=== PATIENT | female | born 1980 | race Two or more races ===

== ENCOUNTER 2021-08-21 07:46 | Emergency (ER) | payer OTHER ==
[~2021-08-21] VITALS: Ht 162.6 cm; Wt 65.9 kg
[2021-08-21] MEDS ORDERED: IV NORMAL SALINE 1,000ML 1,000 ML IV ONE (08:00)
[2021-08-21] MEDS ORDERED: ONDANSETRON PF 4 MG/2 ML VIAL. IVP ONE (08:00)
[2021-08-21] MEDS ORDERED: ONDANSETRON PF 4 MG/2 ML VIAL. ONE (08:24)
--- NOTE | 2021-08-21 08:24 | RAD ---
Study: XR CHEST 1V Indication: Near syncope. Comparison: None. Findings: The cardiomediastinal silhouette and negar are within normal limits. No localized airspace opacity, pl eural effusion or pneumothorax. Lucencies at the right humeral head/greater tuberosity likely postsurgical in nature. Impression: No acute radiographic abnormality of the chest. Electronically signed by: ANDRADE ABBASI MD (08/21/2021 8:22 AM) [facility]
--- NOTE | 2021-08-21 08:24 | EKG ---
[address] [address] Test Date: 2021-08-21 Test Time: 08:04:41 Pat Name: AXEL GLEASON Department: Room: Gender: F Medical Records Technician: RADHA : 1980 Requested By: ELAINA PRAKASH Order Number: [id number] Reading MD: Jameson Shankar Measurements Intervals [place] Rate: 76 P: 41 WA: 150 QRS: 36 QRSD: 82 T: 26 QT: 396 QTc: 450 Interpretive Statements SINUS RHYTHM LOW LIMB LEAD VOLTAGE QRS(T) CONTOUR ABNORMALITY CONSISTENT WITH ANTEROSEPTAL INFARCT AGE UNDETERMINED ABNORMAL ECG RI6.02 No previous ECG available for comparison Electronically Signed On 08-21-2021 17:06:02 CDT by Jameson Shankar
[2021-08-21 08:37] LABS: BASO % 1 % (0-3); EOS % 1 % (0-3); HEMATOCRIT 43.5 % (36.0-47.0); HEMOGLOBIN 14.8 g/dL (12.0-15.5); LYMPH # 0.9 x10^3/uL (1.0-4.8); LYMPH % 23 % (24-48); MEAN CORPUSCULAR HEMOGLOBIN 34 pg (25-35); MEAN CORPUSCULAR HGB CONC 34 g/dL (31-37); MEAN CORPUSCULAR VOLUME 99 fL (79-100); MONO # 0.3 x10^3/uL (0.0-1.1); MONO % 8 % (0-9); NEUT # 2.7 x10^3uL (1.8-7.7); NEUT % 68 % (31-73); PLATELET COUNT 247 x10^3/uL (140-400); RED BLOOD COUNT 4.41 x10^6/uL (3.50-5.40); RED CELL DISTRIBUTION WIDTH 12.5 % (11.5-14.5)
[2021-08-21 08:46] LABS: CALCIUM 9.3 mg/dL (8.5-10.1); CREATININE 0.9 mg/dL (0.6-1.0); GFR 69.3; POTASSIUM 3.5 mmol/L (3.5-5.1)
[2021-08-21 08:53] LABS: ALBUMIN 4.1 g/dL (3.4-5.0); ALBUMIN/GLOBULIN RATIO 1.3 (1.0-1.7); TOTAL BILIRUBIN 0.8 mg/dL (0.2-1.0); TOTAL PROTEIN 7.3 g/dL (6.4-8.2)
--- NOTE | 2021-08-21 09:01 | PHYS DOC ---
Past History Additional Past Medical Histor: seasonal allergies, Factor V Leiden Past Surgical History: Other Additional Past Surgical Histo: bunionectomy, R rotator cuff, septoplasty Alcohol Use: None General Adult EDM: Chief Complaint: NEAR SYCOPE HPI: HPI: 41-year-old female presents after near syncopal episode while driving. The patient was on her way to work when she had a generalized feeling of nausea and that she might vomit. Her vision started to narrow and eventually went completely black. The patient was able to pull to the side of the road. She laid her seat back to compose herself. She was diaphoretic. When she opened her eyes, she was getting her vision back and felt like she had to vomit. She vomited once at the window of the vehicle. At this time, she feels generally weak and tired. She is no longer nauseated. She denies headache, fever, chills. She was feeling fine prior to this episode. She has never had anything happen like this before. No significant medical history. She is on a weight loss supplement but she has been on this for some time. She takes no other medications daily. She has a history of factor V. Review of Systems: Review of Systems: Constitutional: Denies fever or chills Eyes: Denies change in visual acuity HENT: Denies nasal congestion or sore throat Respiratory: Denies cough or shortness of breath Cardiovascular: Denies chest pain or edema GI: Denies abdominal pain, nausea, vomiting, bloody stools or diarrhea : Denies dysuria Musculoskeletal: Denies back pain or joint pain Integument: Denies rash Neurologic: Denies headache, focal weakness or sensory changes Endocrine: Denies polyuria or polydipsia Lymphatic: Denies swollen glands Psychiatric: Denies depression or anxiety Current Medications: Current Meds: Current Medications Medications (Trade) Dose Ordered Sig/Mati Start Time Stop Time Status Last Admin Dose Admin Ondansetron HCl (Zofran) 4 mg 1X ONCE 08/21/21 08:00 08/21/21 08:26 DC 08/21/21 08:32 4 MG Sodium Chloride 1,000 ml @ 1,000 mls/hr 1X ONCE 08/21/21 08:00 08/21/21 08:59 08/21/21 08:32 1,000 MLS/HR Allergies: Allergies: Allergies Coded Allergies Type Severity Reaction Last Updated Verified No Known Drug Allergies 08/21/21 No Physical Exam: PE: Constitutional: Well developed, well nourished, no acute distress, non-toxic appearance. [] HENT: Normocephalic, atraumatic, bilateral external ears normal, oropharynx moist, no oral exudates, nose normal. [] Eyes: PERRLA, EOMI, conjunctiva normal, no discharge. [] Neck: Normal range of motion, no tenderness, supple, no stridor. [] Cardiovascular:Heart rate regular rhythm, no murmur [] Lungs & Thorax: Bilateral breath sounds clear to auscultation [] Abdomen: Bowel sounds normal, soft, no tenderness, no masses, no pulsatile masses. [] Skin: Warm, dry, no erythema, no rash. [] Back: No tenderness, no CVA tenderness. [] Extremities: No tenderness, no cyanosis, no clubbing, ROM intact, no edema. [] Neurologic: Alert and oriented X 3, normal motor function, normal sensory fu nction, no focal deficits noted. [] Psychologic: Affect normal, judgement normal, mood normal. [] Current Patient Data: Labs: Laboratory Tests Test 08/21/21 08:21 White Blood Count 4.0 x10^3/uL (4.0-11.0) Red Blood Count 4.41 x10^6/uL (3.50-5.40) Hemoglobin 14.8 g/dL (12.0-15.5) Hematocrit 43.5 % (36.0-47.0) Mean Corpuscular Volume 99 fL (79-100) Mean Corpuscular Hemoglobin 34 pg (25-35) Mean Corpuscular Hemoglobin Concent 34 g/dL (31-37) Red Cell Distribution Width 12.5 % (11.5-14.5) Platelet Count 247 x10^3/uL (140-400) Neutrophils (%) (Auto) 68 % (31-73) Lymphocytes (%) (Auto) 23 % (24-48) L Monocytes (%) (Auto) 8 % (0-9) Eosinophils (%) (Auto) 1 % (0-3) Basophils (%) (Auto) 1 % (0-3) Neutrophils # (Auto) 2.7 x10^3uL (1.8-7.7) Lymphocytes # (Auto) 0.9 x10^3/uL (1.0-4.8) L Monocytes # (Auto) 0.3 x10^3/uL (0.0-1.1) Eosinophils # (Auto) 0.0 x10^3/uL (0.0-0.7) Basophils # (Auto) 0.0 x10^3/uL (0.0-0.2) Sodium Level 137 mmol/L (136-145) Potassium Level 3.5 mmol/L (3.5-5.1) Chloride Level 100 mmol/L (98-107) Carbon Dioxide Level 27 mmol/L (21-32) Anion Gap 10 (6-14) Blood Urea Nitrogen 13 mg/dL (7-20) Creatinine 0.9 mg/dL (0.6-1.0) Estimated GFR (Cockcroft-Gault) 69.3 BUN/Creatinine Ratio 14 (6-20) Glucose Level 103 mg/dL (70-99) H Calcium Level 9.3 mg/dL (8.5-10.1) Total Bilirubin 0.8 mg/dL (0.2-1.0) Aspartate Amino Transferase (AST) 17 U/L (15-37) Alanine Aminotransferase (ALT) 22 U/L (14-59) Alkaline Phosphatase 63 U/L (46-116) Troponin I High Sensitivity 8 ng/L (4-50) Total Protein 7.3 g/dL (6.4-8.2) Albumin 4.1 g/dL (3.4-5.0) Albumin/Globulin Ratio 1.3 (1.0-1.7) Vital Signs: Vital Signs Date Time Temp Pulse Resp B/P (MAP) Pulse Ox O2 Delivery O2 Flow Rate FiO2 08/21/21 07:52 97.6 71 20 111/66 (81) 99 Room Air EKG: EKG: Sinus rhythm, rate 76, normal axis, no ST elevation or depression, low-voltage, possible Q waves V2 V3. [] Radiology/Procedures: Radiology/Procedures: [] Impressions: EXAM: Head CT without contrast. HISTORY: Near syncope. Vision loss. TECHNIQUE: Computed tomographic images of the head were obtained without contrast. *One or more of the following individualized dose reduction techniques were utilized for this examination: 1. Automated exposure control. 2. Adjustment of the mA and/or kV according to patient size. 3. Use of iterative reconstruction technique. COMPARISON: None. FINDINGS: There is no acute or subacute extra-axial or intraparenchymal hemorrhage. There is no mass effect or midline shift. There is no hydrocephalus. The georges-white matter differentiation pattern is intact. There is a tiny mucous retention cyst or focal mucosal thickening involving the sphenoid sinus. The mastoid air cells are clear. There is no calvarial lesion. IMPRESSION: No acute intracranial findings. Electronically signed by: Junie Cervantes MD (08/21/2021 9:35 AM) [place] [id number] DICTATED AND SIGNED BY: JUNIE CERVANTES MD DATE: 08/21/21933 CC: ELAINA PRAKASH DO; CHRISTO TOMLIN DO, [facility] ~ Study: XR CHEST 1V Indication: Near syncope. Comparison: None. Findings: The cardiomediastinal silhouette and negar are within normal limits. No localized airspace opacity, pleural effusion or pneumothorax. Lucencies at the right humeral head/greater tuberosity likely postsurgical in na ture. Impression: No acute radiographic abnormality of the chest. Electronically signed by: ANDRADE ABBASI MD (08/21/2021 8:22 AM) [facility] DICTATED AND SIGNED BY: ANDRADE ABBASI MD DATE: 08/21/21821 CC: ELAINA PRAKASH DO; PCP,NO ~ Heart Score: C/O Chest Pain: No Risk Factors: Risk Factors: DM, Current or recent (<one month) smoker, HTN, HLP, family history of CAD, obesity. Risk Scores: Score 0 - 3: 2.5% MACE over next 6 weeks - Discharge Home Score 4 - 6: 20.3% MACE over next 6 weeks - Admit for Clinical Observation Score 7 - 10: 72.7% MACE over next 6 weeks - Early Invasive Strategies Course & Med Decision Making: Course & Med Decision Making Pertinent Labs and Imaging studies reviewed. (See chart for details) The patient's EKG shows some interval did show which makes interpretation of the inferior slightly difficult. No obvious ST elevation. Chest x-ray is negative for acute findings. I did perform a head CT given the loss of vision and the patient's history of factor V. It is negative for acute findings. Her labs are unremarkable. Since this episode just occurred, I will order a troponin at 2 hours. Repeat troponin is the same. Not sure exactly what caused the patient's symptoms today. She could be coming down with a viral illness. It could have been a panic attack. I have advised that she follow-up with her physician. She is stable for discharge at this time. [] Dragon Disclaimer: Dragon Disclaimer: This electronic medical record was generated, in whole or in part, using a voice recognition dictation system. Departure Departure: Impression: Primary Impression: Near syncope Disposition: 01 HOME / SELF CARE / HOMELESS Condition: STABLE Referrals: CHRISTO TOMLIN DO, [facility] (PCP) Patient Instructions: Syncope, [id number] ELAINA PRAKASH DO August 21, 2021 09:01
[2021-08-21 09:24] LABS: BARBITURATES NEG (NEG); BENZODIAZEPINES NEG (NEG); CANNABINOIDS NEG (NEG); COCAINE NEG (NEG); METHADONE NEG (NEG); OPIATES NEG (NEG); PHENCYCLIDINE NEG (NEG)
[2021-08-21 09:28] LABS: AMPHETAMINE/METHAMPHETAMINE NEG (NEG)
--- NOTE | 2021-08-21 09:37 | RAD ---
EXAM: Head CT without contrast. HISTORY: Near syncope. Vision loss. TECHNIQUE: Computed tomographic images of the head were obtained without contrast. *One or more of the following individualized dose reduction techniques were utilized for this examina tion: 1. Automated exposure control. 2. Adjustment of the mA and/or kV according to patient size. 3. Use of iterative reconstruction technique. COMPARISON: None. FINDINGS: There is no acute or subacute extra-axial or intraparenchymal hemorrhage. There is no mass effect or midline shift. There is no hydrocephalus. The georges-white matter differentiation pattern is intact. There is a tiny mucous retention cyst or foc al mucosal thickening involving the sphenoid sinus. The mastoid air cells are clear. There is no calv arial lesion. IMPRESSION: No acute intracranial findings. Electronically signed by: Junie Randolph MD (08/21/2021 9:35 AM) [id number]
[2021-08-21 09:41] VITALS: BP 119/68
[2021-08-21 09:54] LABS: BACTERIA,URINE 0 /HPF (0-FEW); CLARITY,URINE HAZY; COLOR,URINE YELLOW; GLUCOSE,URINE NEG (NEG); NITRITE,URINE NEG (NEG); SQUAMOUS EPITHELIAL CELL,UR MOD /LPF; UROBILINOGEN,URINE 0.2 mg/dL (0.2 mg/dL)
== END 2021-08-21 11:22 | disposition home or self-care (01) ==
LOC: ER 07:46
DX: R55 Syncope and collapse (principal); R11.2 Nausea with vomiting, unspecified
CPT/HCPCS: 36415; 70450; 71045; 80053; 80307; 81001; 84484; 85025; 87086; 93005; 96361; 96374; 99285; J2405; J7030